=== PATIENT | male | born 1960 | race Caucasian/White ===

== ENCOUNTER 2016-08-10 08:36 | Inpatient (IN) | payer MEDICARE ==
[~2016-08-10] VITALS: Ht 182.9 cm; Wt 71.7 kg
[~2016-08-10 08:36] MED LIST: PLAVIX 75 MG TA75 MG PO
[2016-08-10 09:08] LABS: HEMOGLOBIN 13.7 gm/dl (14.0-17.5); RED BLOOD COUNT 4.41 M/UL (4.20-5.50); WHITE BLOOD COUNT 6.8 K/UL (4.5-11.0)
[2016-08-10 09:34] LABS: BUN/CREATININE RATIO 10 (0-10)
[2016-08-10] MEDS ORDERED: PHENERGAN 25 MG25 M1 PO (18:08)
[2016-08-10] MEDS ORDERED: OXYCODONE HCL5 MG PO (18:09)
[2016-08-10] MEDS ORDERED: LISINOPRIL10 MG PO (18:11)
[2016-08-10] MEDS ORDERED: VENTOLIN/PROVE0.5 ML INH (18:12)
[2016-08-10] MEDS ORDERED: ASPIR 8181 MG PO (18:13)
[2016-08-10] MEDS ORDERED: COLACE 100MG C100 MG PO (18:13)
[2016-08-10] MEDS ORDERED: CRESTOR10 MG PO (18:14)
[2016-08-10] MEDS ORDERED: SYMBICORT 160-1 INHA INH (18:15)
[2016-08-10] MEDS ORDERED: GLUCOPHAGE 500500 MG PO (18:16)
[2016-08-10] MEDS ORDERED: ESOMEPRAZOLE MA40 MG PO (18:16)
[2016-08-10] MEDS ORDERED: VITAMIN D2000 UNIT PO (18:17)
[2016-08-10] MEDS ORDERED: FOLIC ACID1 MG PO (18:18)
[2016-08-10] MEDS ORDERED: HYDROCHLOROTHIA25 MG PO (18:18)
[2016-08-10] MEDS ORDERED: B-1100 MG PO (18:18)
[2016-08-10] MEDS ORDERED: NITROSTAT 0.40.4 MG SL (18:20)
[2016-08-10] MEDS ORDERED: LASIX20 MG PO (18:20)
[2016-08-10] MEDS ORDERED: CLOBETASOL EMO100 GM TP (18:21)
[2016-08-10] MEDS ORDERED: TUDORZA PRESS400 MCG INH (18:22)
[2016-08-10] MEDS ORDERED: IBUPROFEN800 MG PO (18:23)
[2016-08-10] MEDS ORDERED: GABAPENTIN600 MG PO (18:25)
[2016-08-11 03:30] LABS: HEMOGLOBIN 12.6 gm/dl (14.0-17.5); RED BLOOD COUNT 4.08 M/UL (4.20-5.50); WHITE BLOOD COUNT 6.3 K/UL (4.5-11.0)
[2016-08-11 03:40] LABS: BUN/CREATININE RATIO 20 (0-10)
[2016-08-12] MEDS ORDERED: [UNRECOGNIZED DRUG - OTHER] SC (03:09)
[2016-08-12] MEDS ORDERED: NOVOLOG100 UNIT/1 SC (03:09)
[2016-08-12 05:48] LABS: HEMOGLOBIN 12.2 gm/dl (14.0-17.5); RED BLOOD COUNT 3.95 M/UL (4.20-5.50); WHITE BLOOD COUNT 5.5 K/UL (4.5-11.0)
[2016-08-12 06:06] LABS: BUN/CREATININE RATIO 33 (0-10)
[2016-08-12] MEDS ORDERED: SURFAK240 MG PO (07:13)
[2016-08-13 06:05] LABS: BUN/CREATININE RATIO 23 (0-10)
[2016-08-13 06:12] LABS: RED BLOOD COUNT 3.89 M/UL (4.20-5.50); WHITE BLOOD COUNT 6.3 K/UL (4.5-11.0)
[2016-12-15] MEDS ORDERED: FLOVENT DISKUS50 MCG INH (16:04)
[2016-12-15] MEDS ORDERED: LEVAQUIN750 MG PO (16:05)
[2016-12-15] MEDS ORDERED: PREDNISONE 20 M20 MG PO (16:11)
[2016-12-15] MEDS ORDERED: VISTARIL25 MG PO (16:12)
[2016-12-15] MEDS ORDERED: ALDACTONE100 MG PO (16:13)
[2016-12-15] MEDS ORDERED: ZYRTEC10 M3 PO (16:13)
[2016-12-16] MEDS ORDERED: FLONASE 0.05% N16 GM (06:51)
[2016-12-18] MEDS ORDERED: BUPRENORPHIN-N1 EACH SL (16:12)
[2016-12-20] MEDS ORDERED: RANEXA500 MG PO (13:44)
[2016-12-20] MEDS ORDERED: LISINOPRIL5 MG PO (13:45)
[2016-12-20] MEDS ORDERED: CRESTOR20 MG PO (13:45)
[2016-12-20] MEDS ORDERED: ALDACTONE50 MG PO (13:46)
[2016-12-20] MEDS ORDERED: IMDUR ER TAB 3030 MG PO (13:46)
== END 2016-08-14 13:20 | disposition home or self-care (01) | DRG 392 ==
LOC: ER1 08:36 → MED SURG 4 16:00 → ZEROF 16:00 → MED SURG 4 20:34
PROVIDERS: Family Medicine; Internal Medicine; Internal Medicine Gastroenterology; ADMIT Internal Medicine
PROC: 0DBB8ZX Excision of Ileum, Via Natural or Artificial Opening Endoscopic, Diagnostic (ICD-10-PCS; 2016-08-13)
PROC: 0DBN8ZZ Excision of Sigmoid Colon, Via Natural or Artificial Opening Endoscopic (ICD-10-PCS; principal; 2016-08-13 13:15)
DX: R10.30 Lower abdominal pain, unspecified (principal); E87.2 Acidosis; I85.10 Secondary esophageal varices without bleeding; D12.5 Benign neoplasm of sigmoid colon; E11.65 Type 2 diabetes mellitus with hyperglycemia; K70.30 Alcoholic cirrhosis of liver without ascites; D69.6 Thrombocytopenia, unspecified; F10.20 Alcohol dependence, uncomplicated; E87.6 Hypokalemia; B18.2 Chronic viral hepatitis C; I25.10 Atherosclerotic heart disease of native coronary artery without angina pectoris; J44.9 Chronic obstructive pulmonary disease, unspecified; I10 Essential (primary) hypertension; R07.9 Chest pain, unspecified; K57.30 Diverticulosis of large intestine without perforation or abscess without bleeding; K64.8 Other hemorrhoids; K29.50 Unspecified chronic gastritis without bleeding; N50.82 Scrotal pain; F17.210 Nicotine dependence, cigarettes, uncomplicated; Z98.61 Coronary angioplasty status; Z79.02 Long term (current) use of antithrombotics/antiplatelets; Z79.82 Long term (current) use of aspirin; Z79.84 Long term (current) use of oral hypoglycemic drugs; Z79.891 Long term (current) use of opiate analgesic; Z79.1 Long term (current) use of non-steroidal anti-inflammatories (NSAID); Z79.899 Other long term (current) drug therapy; Z82.3 Family history of stroke; Z83.49 Family history of other endocrine, nutritional and metabolic diseases; Z80.9 Family history of malignant neoplasm, unspecified
CPT/HCPCS: 36415; 71010; 76870; 80048; 80053; 81001; 82140; 82550; 82553; 82962; 83036; 83605; 83690; 83874; 84132; 84484; 85025; 85027; 87177; 93005; 96361; 96374; 96375; 96376; 99285; C9113; G0480; J1335; J1956; J2405; J3243; J3411; J3475; J7030; J7040; J7050